=== PATIENT | male | born 1945 | race Caucasian/White ===

== ENCOUNTER 2024-10-25 15:17 | Emergency (ER) | payer MEDICARE, SELFPAY ==
[2024-10-25] VITALS (17 sets, daily range): BP systolic 88–127; BP diastolic 54–71; PULSE 50–76; RESP 14–26; TEMP 36.6; O2SAT 90–100
--- NOTE | ~2024-10-25 | XR_ITS ---
XR shoulder LT min 2V DATE: 10/25/2024 17:26 INDICATION: Fall TECHNIQUE: 3 views COMPARISON: None FINDINGS: Diffuse osteopenia. Is evidence of rotator cuff atrophy. No fracture or dislocation, periosteal reaction or bone destruction of the left shoulder is evident. Left eighth rib fracture is noted. Anterior left seventh rib fracture. Additional left rib fractures are present but some are radiographically occult, detected by CT. Status post interbody surgical fusion at C5-6 and C6-7. Cervical spondylosis. IMPRESSION: No fracture or dislocation of the left shoulder is detected Osteopenia Left rotator cuff atrophy Multiple left rib fractures Reviewed, dictated and finalized at location A.
--- NOTE | ~2024-10-25 | XR_ITS ---
XR ribs LT 2V w CXR 2V DATE: 10/25/2024 17:26 INDICATION: Fall. TECHNIQUE: AP chest. 4 views of the left ribs. COMPARISON: 10/25/2024 CDT thoracic and lumbar spine FINDINGS: Mildly displaced anterolateral left seventh and 10th rib fractures are noted. Subtle anteri or left eighth rib fracture is suggested. 10/25/2024 CT examination reveals virtually nondisplaced proximal left fourth rib fracture, slightly d isplaced posterior left fifth rib fracture. Posterolateral nondisplaced left sixth and seventh rib fr actures, all which appear acute. Additionally the CT examination reveals proximal left 11th and 2 proximal left 12th rib fractures wit h some periosteal reaction indicating that these are recent but not acute. Heart size appears normal. There is aortic unfolding. No pulmonary infiltrate is evident. Status post interbody surgical fusion at C5-6 and C6-7. Status post reverse right glenohumeral arthroplasty. IMPRESSION: Multiple recent left rib fractures, involving at least left fourth through seventh ribs, probably anterior eighth rib Subacute healing left 11th and 12th rib fractures Reviewed, dictated and finalized at location A.
--- NOTE | ~2024-10-25 | CT_ITS ---
EXAMINATION: CT facial & cervical spine wo DATE: 10/25/2024 17:13 INDICATION: TECHNIQUE: Computed tomography (CT) of the facial bones and maxillofacial region and cervical spine w as performed without intravenous contrast. Automated exposure control and iterative reconstruction te chnique were employed. Exam dose: 602.72 mGy-cm total exam DLP. COMPARISON: None. FINDINGS: Facial bones: There is complete opacification of the left mastoid sinus with some expansion of the sinus and thinni ng of the bony m[place], consistent with mucocele. The paranasal sinuses otherwise are normally developed and aerated. The nasal bones and anterior nasal spine are intact. The frontozygomatic sutures are intact as are th e orbital rims and middleton, zygomatic arches, maxillary bones and pterygoid plates. No fracture or dislocation of the mandible. Prominent chondrocalcinosis of the left temporomandibular joint. There is mild partial opacification of right mastoid air cells. The left mastoid cells appear normal. Cervical spine: There is reversal cervical curvature which may be due to muscle spasm. Normal alignment at the atlantoaxial joints. C1 and C2 are normally aligned and the odontoid process is intact. There is 2 mm anterolisthesis at C2-3. There is very severe degenerative disc disease and prominent posterior spurring as well as prominent uncovertebral joint spurring at C3-4 and C4-5 with associated 3.2 mm retrolisthesis at C4-5. There is interbody surgical fusion at C5-6 and C6-7. There is prominent uncovertebral joint spurring at C6-7. There is prominent posterior spurring C7-T1. No cervical spine fracture or dislocation or locked facet or prevertebral soft tissue swelling. IMPRESSION: No facial fracture Left maxillary sinus mucocele Reversal cervical curvature which may be due to muscle spasm Severe cervical spondylosis No fracture or dislocation or locked facet of the cervical spine is evident. Posterior left fourth and fifth rib fractures Reviewed, dictated and finalized at Location [facility]. Reviewed, dictated and finalized at location A.
--- NOTE | ~2024-10-25 | CT_ITS ---
EXAMINATION: CT thoracic lumbar wo con DATE: 10/25/2024 17:13 INDICATION: Falls TECHNIQUE: Computed tomography (CT) of the spine and L1 was performed without intravenous contrast. A utomated exposure control and iterative reconstruction technique were employed. Exam dose: 1414.41 m Gy-cm total exam DLP. COMPARISON: None FINDINGS: Status post interbody surgical fusion at C5-6 and C6-7. There are mild anterior wedge compression fractures of T10, likely chronic and T12, which appears acu te. Fracture of the superior articular facet of L2. Recent. No other fracture or dislocation of the included thoracic and upper lumbar spine is noted. There are multiple left rib fractures including: Recent proximal left fourth, posterior left fifth, posterolateral left sixth and seventh rib fracture s. Proximal healing left 11th rib fracture with periosteal reaction. Two proximal 12th rib fractures, each with some periosteal reaction. IMPRESSION: Mild T12 recent compression fracture Probable chronic T10 compression fracture Recent left fourth through seventh rib fractures; recent eighth rib fracture was demonstrated on the current left shoulder radiographic examination. Subacute proximal left 11th and 12th healing rib fractures with periosteal reaction Reviewed, dictated and finalized at [facility]. Reviewed, dictated and finalized at location A. IMPRESSION: Mild T12 recent compression fracture Probable chronic T10 compression fracture Recent left fourth through seventh rib fractures; recent eighth rib fracture wa s demonstrated on the current left shoulder radiographic examination. Subacute proximal left 11th and 12th healing rib fractures with periosteal reac tion
--- NOTE | ~2024-10-25 | CT_ITS ---
EXAMINATION: CT brain wo con DATE: 10/25/2024 17:13 INDICATION: Fall TECHNIQUE: Computed tomography (CT) of the head was performed without intravenous contrast. The mA wa s adjusted according to patient size. Iterative reconstruction technique was employed. Exam dose: 13 62.00 mGy-cm total exam DLP. COMPARISON: None FINDINGS: 2 sets of examinations were performed due to motion artifact. There is central and cortical cerebral atrophy including prominent temporal horns. There is mild cere bellar atrophy. There is prominent calcification of the carotid siphon internal carotid arteries. There is nonspecifi c diminished attenuation of the cerebral white matter, likely due to chronic small vessel ischemic ch anges. No intracranial mass lesion or hemorrhage or cerebrovascular accident, midline shift or mass effect o r subdural or epidural hematoma is detected. Left maxillary sinus mucocele expansion of the sinus and thinning of the bony middleton. The paranasal si nuses are otherwise unremarkable. Intermittent patchy opacified right mastoid air cells. The mastoid air cells appear well-developed and aerated. No fracture or bone destruction of the cranial vault. IMPRESSION: No skull fracture or acute intracranial finding Left maxillary sinus mucocele Prominent central and cortical cerebral and mild cerebellar atrophy Cerebral atherosclerosis and chronic small vessel ischemic changes of the cerebral white matter Reviewed, dictated and finalized at Location [facility]. Reviewed, dictated and finalized at location A. IMPRESSION: No skull fracture or acute intracranial finding Left maxillary sinus mucocele Prominent central and cortical cerebral and mild cerebellar atrophy Cerebral atherosclerosis and chronic small vessel ischemic changes of the cereb ral white matter
--- NOTE | 2024-10-25 16:15 | ECG_ITS ---
Test Date: 2024-10-25 15:32:35 Measurements Intervals [place] Rate: 66 P: 0 KS: 0 QRS: -70 QRSD: 141 T: 60 QT: 401 QTc: 423 Interpretive Statements sinus rhythm with intermittent second-degree AV block type 1 RIGHT BUNDLE BRANCH BLOCK [120+ ms QRS DURATION, UPRIGHT V1, 40+ ms S IN I/aVL/V4/V5/V6] LEFT ANTERIOR FASCICULAR BLOCK [QRS AXIS <= -45, QR IN I, RS IN II] MINIMAL VOLTAGE CRITERIA FOR LVH, CONSIDER NORMAL VARIANT [MEETS CRITERIA IN ONE OF: R(aVL), S(V1), R(V5), R(V5/V6)+S(V1)] PROBABLE SEPTAL MYOCARDIAL INFARCTION , PROBABLY OLD [35 ms Q WAVE IN V1/V2] No previous ECG available for comparison Electronically Signed On 10-26-2024 16:35:00 CDT by Clark Thomason M.D.
--- NOTE | 2024-10-25 16:18 | ED_ITS ---
HPI - Fall General Chief Complaint: Fall Stated Complaint: L. rib pain Time Seen by Provider: 10/25/24 15:21 History of Present Illness HPI Narrative: 79-year-old male presents to the emergency department via EMS from [facility] with 2 daughters at bedside for falls. Patient most recently had a fall yesterday where he was walking his and hit the left side of his head on a door frame and fell back. He did not lose consciousness. He is not anticoagulated. The patient's daughters states that today they are visiting the patient he seemed to be crying out in pain more than normal so they brought him to the ED for evaluation. He reportedly has been complaining of pain to the left side/ribs, back and left shoulder pain. They note that he has chronic bilateral shoulder pain and back pain are unsure if his complaints are acute. He is A&O x1 at baseline they state he has been in his normal mental status. He received Tylenol prior to arrival with improvement and is now resting comfortably in the exam bed. He denies pain to his lower legs and has been ambulating since the incident without issue. He does have urinary incontinence, no changes in bowel or bladder. He presents with abrasions to his bilateral upper extremities and left eyebrow/orbit. Last Tdap unknown. Bleeding controlled. Patient's family at bedside state that he has had several recent falls but this is unchanged from baseline. Related Data Allergies Allergy/AdvReac Type Severity Reaction Status Date / Time clopidogrel Allergy Intermediate Unknown Verified 10/25/24 15:29 dexlansoprazole Allergy Intermediate Unknown Verified 10/25/24 15:29 semaglutide (From Ozempic) Allergy Intermediate Unknown Verified 10/25/24 15:29 Review of Systems 2 Review of Systems: All systems reviewed & are unremarkable except as noted in HPI and below Exam 2 Narrative: GENERAL: Well-appearing, well-nourished, and in no acute distress. HEAD: Normocephalic EYES: PERRLA and EOMI. Ecchymosis to the left orbit, no hyphema no proptosis, no entrapment ENT: Nares clear, no rhinorrhea or epistaxis. Mucous membranes moist. NECK: No significant midline cervical spinous tenderness, crepitus, step-offs or deformities BACK: Mild tenderness to the thoracic spine, tenderness to the left posterior ribs with no overlying skin changes, crepitus or deformities. No remarkable tenderness to the lumbar spine. CHEST: Clear to auscultation. No respiratory distress. HEART: Regular rate and rhythm. No murmur heard. Normal peripheral pulses. ABDOMEN: Soft, nontender, nondistended, normal active bowel sounds. EXTREMITIES: Increased pain to the left shoulder with range of motion, no obvious deformity, no tenderness remainder of upper lower extremities. Radial pulse 2 +. Sensation intact SKIN: Superficial abrasions to the left eyebrow and lateral aspect of the left orbit with surrounding ecchymosis, superficial abrasions and skin tear to the left dorsal forearm and small abrasion to the right volar forearm. Bleeding controlled throughout. No evidence of secondary infection NEURO: No focal deficits. Alert and oriented x1. BUE and BLE strength 5/5, sensation intact throughout. No saddle anesthesia. Course Vital Signs Vital signs: Vital Signs Temperature 97.9 F 10/25/24 15:21 Pulse Rate 76 10/25/24 15:21 Respiratory Rate 20 10/25/24 15:21 Blood Pressure 105/61 10/25/24 15:21 Pulse Oximetry 96 10/25/24 15:21 Oxygen Delivery Room Air 10/25/24 15:21 Temperature 97.9 F 10/25/24 15:21 Pulse Rate 62 10/25/24 19:16 Respiratory Rate 17 10/25/24 19:16 Blood Pressure 106/62 10/25/24 19:50 Pulse Oximetry 100 10/25/24 19:16 Oxygen Delivery Room Air 10/25/24 15:21 MDM - Fall MDM Narrative Medical decision making narrative: 79-year-old male presents with 2 daughters at bedside from [facility] for a mechanical fall that occurred yesterday. States patient has been crying out in pain and appearing uncomfortable. He had reportedly been complaining of left shoulder pain, left side/rib pain, back pain. He does have chronic shoulder and back pain. They also note he has had several frequent falls. Vital signs are stable. Exam significant for the above. CT brain shows no skull fracture or acute intracranial finding. CT cervical spine facial bones shows no facial fracture. There is evidence of posterior left 4th and 5th rib fractures. CT thoracic and lumbar spine shows mild T12 compression fracture, chronic T10 compression fracture, left 4th through 8th rib fractures, subacute proximal left 11th and 12th rib fractures, fracture of the superior articular facet of L2. X-ray the shoulder shows no acute fracture dislocation of the shoulder. CBC without leukocytosis, hemoglobin is 11.6, prior for comparison. Chemistries with a creatinine of 1.49, BUN of 21, again no prior for comparison. UA without infection Patient's mucous membranes were dry, the patient received a L of fluids with improvement. Tdap updated. Patient and family updated on results. Pt is resting comfortably in exam bed, vital signs remain stable. Plan to transfer to trauma center. Discussed with [facility] transfer dawes. Trauma physician, Dr. Rivera, accepts patient for ED to ED transfer. Lab Data 10/25/24 16:43 10/25/24 16:43 Labs: Lab Results 10/25/24 Range/Units 16:43 WBC 9.4 (4.5-10.0) K/mm3 RBC 3.42 L (4.6-6.20) M/mm3 Hgb 11.6 L (14.0-18.0) g/dL Hct 34.5 L (42.0-52.0) % MCV 100.9 H (80-100) fl MCH 33.9 (26-34) pg MCHC 33.6 (32-36) g/dl RDW 12.6 (11.5-14.5) % Plt Count 174 (150-375) k/mm3 MPV 8.7 (7.4-10.4) fl Immature Gran % (Auto) 0.6 H (0-0.5) % Neut % (Auto) 83.2 H (45.5-73.1) % Lymph % (Auto) 3.3 L (18.3-44.2) % [place] % (Auto) 12.6 H (2.6-8.5) % Eos % (Auto) 0.2 (0-4.4) % Baso % (Auto) 0.1 L (0.2-1.2) % Lymph # (Auto) 0.31 L (0.9-3.2) K/mm3 [place] # (Auto) 1.2 H (0.1-0.6) K/mm3 Eos # (Auto) 0.0 (0-0.3) K/mm3 Baso # (Auto) 0.0 (0.0-0.1) K/mm3 Abs Immat Gran (auto) 0.06 H (0.00-0.031) K/mm3 Absolute Neuts (auto) 7.9 H (1.3-6.7) K/mm3 Absolute Nucleated RBC 0.000 (0.0-0.012) K/mm3 Nucleated RBC % 0.0 (0.0-0.2) % Sodium 130 L (137-145) mmol/L Potassium 4.2 (3.4-5.0) mmol/L Chloride 99 (98-107) mmol/L Carbon Dioxide 20 L (22-30) mmol/L Anion Gap 11 (4-12) mmol/L BUN 21 H (9-20) mg/dL Creatinine 1.49 H (0.7-1.3) mg/dL Estim Creat Clear Calc 38 ml/min Estimated GFR 45 L (59 - ) Glucose 130 H (65-110) mg/dL Calcium 8.9 (8.4-10.2) mg/dL Magnesium 1.9 (1.6-2.3) mg/dL Total Bilirubin 0.5 (0.2-1.3) mg/dL AST 24 (17-59) U/L ALT 21 (6-50) U/L Alkaline Phosphatase 120 (38-126) U/L Total Protein 7.0 (6.3-8.2) g/dL Albumin 3.6 (3.5-5.1) g/dL Urine Color Yellow (Yellow) Urine Appearance Clear (Clear) Urine pH 7.5 (5.0-9.0) Ur Specific [place] 1.009 (1.001-1.035) Urine Protein Negative (Negative) mg/dL Urine Glucose (UA) Negative (Negative) mg/dL Urine Ketones Negative (Negative) mg/dL Ur Blood (Man) Negative (Negative) Urine Nitrate Negative (Negative) Urine Bilirubin Negative (Negative) Urine Urobilinogen 0.2 (<2.0) mg/dL Leukocyte Esterase Rfl Negative (Negative) SUNI/UL Discharge Plan Discharge Clinical Impression: Frequent falls, Abrasion Multiple fractures of ribs Qualifiers: Encounter type: initial encounter Fracture type: closed Laterality: left Q ualified Code(s): S22.42XA - Multiple fractures of ribs, left side, initial encounter for closed fracture T12 compression fracture Qualifiers: Encounter type: initial encounter Qualified Code(s): S22.080A - Wedge compression fracture of T11-T12 vertebra, initial encounter for closed fracture Compression fracture of T10 vertebra Qualifiers: Encounter type: initial encounter Qualified Code(s): S22.070A - Wedge compression fracture of T9-T10 vertebra, initial encounter for closed fracture Closed L2 vertebral fracture Qualifiers: Encounter type: initial encounter Fracture morphology: unspecified fracture morphology Qualified Code(s): S32.029A - Unspecified fracture of second lumbar vertebra, initial encounter for closed fracture Patient Disposition: Acute Care Hospital Condition: Stable Patient Language: Croatian Follow-up/Referrals: PHYSICIAN NOT ON STAFF,NONSTAFF [Primary Care Provider] -
[2024-10-25] MEDS: SODIUM CHLORIDE 0.9% IV 500 ML 999 ML IV CONT (16:42)
[2024-10-25 16:48] LABS: Basophils Percent Auto 0.1 % (0.2-1.2); Eosinophils Percent Auto 0.2 % (0-4.4); Hematocrit 34.5 % (42.0-52.0); Hemoglobin 11.6 g/dL (14.0-18.0); Immature Granulocyte Absolute 0.06 K/mm3 (0.00-0.031); Immature Granulocyte Percent A 0.6 % (0-0.5); Lymphocytes Absolute Auto 0.31 K/mm3 (0.9-3.2); Lymphocytes Percent Auto 3.3 % (18.3-44.2); Mean Corpuscular HGB Conc 33.6 g/dl (32-36); Mean Corpuscular Hemoglobin 33.9 pg (26-34); Mean Corpuscular Volume 100.9 fl (80-100); Mean Platelet Volume 8.7 fl (7.4-10.4); Monocytes Absolute Auto 1.2 K/mm3 (0.1-0.6); Monocytes Percent Auto 12.6 % (2.6-8.5); Neutrophils Absolute Auto 7.9 K/mm3 (1.3-6.7); Neutrophils Percent Auto 83.2 % (45.5-73.1); Platelet Count Result 174 k/mm3 (150-375); Red Blood Count 3.42 M/mm3 (4.6-6.20); Red Cell Distribution Width 12.6 % (11.5-14.5); White Blood Count 9.4 K/mm3 (4.5-10.0)
[2024-10-25] MEDS: TETANUS,DIPHTHERIA,AC PERTUSSIS ADULT (0.5 ML) BOOSTRIX IM (16:48)
[2024-10-25 17:01] LABS: Alanine Aminotransferase 21 U/L (6-50); Albumin Level 3.6 g/dL (3.5-5.1); Alkaline Phosphatase 120 U/L (38-126); Anion Gap 11 mmol/L (4-12); Aspartate Amino Transferase 24 U/L (17-59); Bilirubin,Total 0.5 mg/dL (0.2-1.3); Blood Urea Nitrogen 21 mg/dL (9-20); Calcium 8.9 mg/dL (8.4-10.2); Carbon Dioxide 20 mmol/L (22-30); Chloride 99 mmol/L (98-107); Estimated CRCL calculation 38 ml/min; Estimated Glomerular Filt Rate 45; Glucose 130 mg/dL (65-110); Potassium 4.2 mmol/L (3.4-5.0); Sodium 130 mmol/L (137-145)
[2024-10-25 17:02] LABS: Add Urine Microscopic? NO; Appearance Urine Clear (Clear); Bilirubin Urine Negative (Negative); Blood Urine Negative (Negative); Color Urine Yellow (Yellow); Glucose Urine UA Negative (Negative); Ketones Urine Negative (Negative); Leukocyte Esterase Ur Negative LEU/UL (Negative); Nitrate Urine Negative (Negative); Protein Urine Negative (Negative); Specific Grav Ur 1.009 (1.001-1.035); Urobilinogen Urine 0.2 mg/dL (<2.0); pH Urine 7.5 (5.0-9.0)
--- NOTE | 2024-10-25 18:55 | ECG_ITS ---
Test Date: 2024-10-25 19:16:08 Measurements Intervals [place] Rate: 56 P: -46 ND: 238 QRS: -58 QRSD: 138 T: 23 QT: 458 QTc: 445 Interpretive Statements SINUS BRADYCARDIA WITH FIRST DEGREE AV BLOCK LEFT ANTERIOR FASCICULAR BLOCK RIGHT BUNDLE BRANCH BLOCK [120+ ms QRS DURATION, UPRIGHT V1, 40+ ms S IN I/aVL/V4/V5/V6] MINIMAL VOLTAGE CRITERIA FOR LVH, CONSIDER NORMAL VARIANT [MEETS CRITERIA IN ONE OF: R(aVL), S(V1), R(V5), R(V5/V6)+S(V1)] SEPTAL MYOCARDIAL INFARCTION , PROBABLY OLD [40+ ms Q WAVE IN V1/V2] Electronically Signed On 10-26-2024 16:38:04 CDT by Clark Thomason M.D.
[2024-10-25 19:18] LABS: Magnesium 1.9 mg/dL (1.6-2.3)
--- NOTE | 2024-10-25 20:48 | PC.NURSE ---
THis rn spoke with pt facility [facility] at 2047 to give update on patient.
== END 2024-10-25 20:50 | disposition short-term general hospital (02) ==
PROVIDERS: Emergency Provider Physician Assistant
DX: S22.080A Wedge compression fracture of T11-T12 vertebra, initial encounter for closed fracture (principal); S22.070A Wedge compression fracture of T9-T10 vertebra, initial encounter for closed fracture; S32.028A Other fracture of second lumbar vertebra, initial encounter for closed fracture; S22.42XA Multiple fractures of ribs, left side, initial encounter for closed fracture; S00.212A Abrasion of left eyelid and periocular area, initial encounter; S50.812A Abrasion of left forearm, initial encounter; S50.811A Abrasion of right forearm, initial encounter; R29.6 Repeated falls; Z23 Encounter for immunization; W18.09XA Striking against other object with subsequent fall, initial encounter; M62.512 Muscle wasting and atrophy, not elsewhere classified, left shoulder; J34.1 Cyst and mucocele of nose and nasal sinus; M47.812 Spondylosis without myelopathy or radiculopathy, cervical region; I67.2 Cerebral atherosclerosis; Z98.1 Arthrodesis status; I45.2 Bifascicular block; I44.0 Atrioventricular block, first degree; R00.1 Bradycardia, unspecified
CPT/HCPCS: 36415; 70450; 70486; 71046; 71100; 72125; 72128; 72131; 73030; 80053; 81003; 83735; 85025; 90471; 90715; 93005; 99285; J7030; J7040